=== PATIENT | female | born 1990 | race Caucasian/White ===

== ENCOUNTER 2018-12-26 19:06 | Emergency (ER) | payer OTHER ==
[~2018-12-26] VITALS: Ht 152.4 cm; Wt 97.5 kg
[2018-12-26 19:24] VITALS: BP 136/68; Ht 152.4 cm; Wt 97.5 kg
== END 2018-12-26 20:04 | disposition home or self-care (01) ==
LOC: ED 19:06
DX: K08.89 Other specified disorders of teeth and supporting structures (principal)